=== PATIENT | male | born 1940 | race American Indian/Alaskan Native ===

== ENCOUNTER → 2021-09-16 | Emergency (ER) | payer MEDICARE ==
--- NOTE | 2021-09-16 10:38 | Emergency Department Report ---
ED CPR HPI - General Stated Complaint: CARDIAC ARREST Time Seen by Provider: 09/16/21 10:33 Source: EMS Mode of arrival: Stretcher Limitations: No Limitations - History of Present Illness MD Complaint: stopped breathing -: hour(s) Place: other (DIALYSIS) Bystander CPR Performed: No AED Applied by Bystander/[employer] [place]: No ED Review of Systems ROS: Stated complaint: CARDIAC ARREST Other details as noted in HPI Comment: Unobtainable due to pts medical conditions ED Past Medical Hx - Past Medical History Previous Medical History?: Yes ED Physical Exam - General Limitations: Altered Mental Status General appearance: other (UNRESPONSIVE) - Head Head exam: Present: atraumatic, normocephalic - Eye Eye exam: Present: other (FIXED ) - ENT ENT exam: Present: normal exam, mucous membranes moist - Respiratory Respiratory exam: Present: other (NO SPONTANOUS BREATHING ) - GI/Abdominal GI/Abdominal exam: Present: soft ED Course - Reevaluation(s) Reevaluation #1: 09/16/21 10:35 INTUBATED ON ARRIVAL, EPI TIMES 3 BICARB AND CALICUM TIMES 2 PRONOUNCED AT 1027 - Intubation Time Out Performed: Yes Sedative: none Laryngoscope: fiberoptic video scope Size: 3 Assist Device Used: fiberoptic device ET Tube Size: 7.5 Tube Secured Depth (cm): 24 Tube Secured Location: lips Tube Placement Confirmation: visualized tube passing t, equal breath sounds bilat, no breath sounds over epi, confirmation by capnometr Patient Tolerated Procedure: well Intubation Complications: none Critical care attestation.: If time is entered above; I have spent that time in minutes in the direct care of this critically ill patient, excluding procedure time. ED Disposition Clinical Impression: Cardiac arrest Disposition: 20 Is pt being admited?: No Does the pt Need Aspirin: No Condition: Undetermined
== END ==
LOC: ED 10:21
DX: I46.9 Cardiac arrest, cause unspecified (principal)
CPT/HCPCS: 31500; 92950; 99285